=== PATIENT | female | born 1980 | race Asian ===

== ENCOUNTER → 2017-03-05 | Outpatient (CLI) | payer BC ==
[~2017-03-05] VITALS: Ht 152.4 cm; Wt 63.0 kg
[~2017-03-05] MED LIST: PRENATAL VITAM1 EA10 PO
[2017-03-05 08:33] VITALS: BP 95/56
== END | disposition home or self-care (01) ==
LOC: IVINF 03-04 16:00
DX: Z31.82 Encounter for Rh incompatibility status (principal); Z3A.28 28 weeks gestation of pregnancy; Z67.11 Type A blood, Rh negative
CPT/HCPCS: 96372; J2790

== ENCOUNTER 2017-05-29 07:42 | Inpatient (IN) | payer BC ==
[2017-05-29] VITALS (15 sets, daily range): BP systolic 90–107; BP diastolic 51–70
[2017-05-29 08:43] LABS: BASOPHIL (%) 0.3 % (0-1); EOSINOPHIL (%) 0.6 % (0-5); EOSINOPHIL COUNT 0.1 K/uL (0-0.3); HEMATOCRIT 36.3 % (36.0-46.0); LYMPHOCYTE (%) 17.4 % (15-42); LYMPHOCYTE COUNT 1.7 K/uL (1.0-2.8); MCH 30.1 PG (29.0-34.0); MCHC 33.1 G/DL (30.0-36.0); MONOCYTE (%) 3.8 % (3-12); MONOCYTE COUNT 0.4 K/uL (0-0.8); NEUTROPHIL (%) 76.9 % (45-76); NEUTROPHIL COUNT 7.5 K/uL (1.8-6.4); PLATELET COUNT 212 K/uL (156-360); RBC DIS.WIDTH-CV 13.4 % (11.8-14.6); RBC DIS.WIDTH-SD 44.5 % (39-53); RED BLOOD COUNT 3.99 M/uL (3.80-5.20); WHITE BLOOD COUNT 9.7 K/uL (4.1-10.2)
[2017-05-30 06:22] LABS: BASOPHIL (%) 0.2 % (0-1); EOSINOPHIL (%) 0.1 % (0-5); HEMATOCRIT 26.6 % (36.0-46.0); HEMOGLOBIN 8.9 G/DL (11.9-15.5); IMMATURE GRANULOCYTE (%) 1.1 % (0.0-0.7); LYMPHOCYTE (%) 11.9 % (15-42); LYMPHOCYTE COUNT 2.3 K/uL (1.0-2.8); MCH 30.6 PG (29.0-34.0); MCHC 33.5 G/DL (30.0-36.0); MCV 91.4 FL (83-99); MONOCYTE (%) 5.1 % (3-12); NEUTROPHIL (%) 81.6 % (45-76); NEUTROPHIL COUNT 15.8 K/uL (1.8-6.4); PLATELET COUNT 179 K/uL (156-360); RBC DIS.WIDTH-CV 13.5 % (11.8-14.6); RBC DIS.WIDTH-SD 45.3 % (39-53); RED BLOOD COUNT 2.91 M/uL (3.80-5.20); WHITE BLOOD COUNT 19.4 K/uL (4.1-10.2)
[2017-05-30 07:29] VITALS: BP 105/58
[2017-05-30] MEDS ORDERED: FEOSOL325 MG PO (13:17)
[2017-05-30 14:29] VITALS: BP 107/59
[2017-05-30 23:13] VITALS: BP 90/50
== END 2017-05-31 11:44 | disposition home or self-care (01) | DRG 775 ==
LOC: LDRP-OP → 2WEST 07:43 → LDRP-OP 14:16 → 2WEST 18:04 → LDRP-OP 06-27 08:28
PROVIDERS: Obstetrics & Gynecology
PROC: 0KQM0ZZ Repair Perineum Muscle, Open Approach (ICD-10-PCS; principal; 2017-05-29)
PROC: 3E033VJ Introduction of Other Hormone into Peripheral Vein, Percutaneous Approach (ICD-10-PCS; principal; 2017-05-29)
PROC: 10D07Z6 Extraction of Products of Conception, Vacuum, Via Natural or Artificial Opening (ICD-10-PCS; principal; 2017-05-29)
PROC: 10907ZC Drainage of Amniotic Fluid, Therapeutic from Products of Conception, Via Natural or Artificial Opening (ICD-10-PCS; principal; 2017-05-29)
DX: O70.1 Second degree perineal laceration during delivery (principal); O76 Abnormality in fetal heart rate and rhythm complicating labor and delivery; O87.8 Other venous complications in the puerperium; O99.824 Streptococcus B carrier state complicating childbirth; O48.0 Post-term pregnancy; O69.82X0 Labor and delivery complicated by other cord entanglement, without compression, not applicable or unspecified; O99.02 Anemia complicating childbirth; D62 Acute posthemorrhagic anemia; Z88.0 Allergy status to penicillin; Z3A.40 40 weeks gestation of pregnancy; Z37.0 Single live birth
CPT/HCPCS: 83030; 85025; 86850; 86870; 86900; 86901; C1755; J0595; J2540; J2790; J7120